=== PATIENT | male | born 1995 | race Two or more races ===

== ENCOUNTER 2021-02-14 15:19 | Emergency (ER) | payer OTHER ==
[~2021-02-14] VITALS: Ht 182.9 cm; Wt 88.9 kg
[2021-02-14 15:40] VITALS: BP 118/70
[2021-02-14] MEDS ORDERED: LIDOCAINE 1% HCL (LOCAL ANESTH.) INJ 20ML MDV IJ ONE (16:30)
== END 2021-02-14 17:25 | disposition home or self-care (01) ==
LOC: ER 15:19
DX: S61.217A Laceration without foreign body of left little finger without damage to nail, initial encounter (principal); W26.0XXA Contact with knife, initial encounter; Y93.89 Activity, other specified; Y92.89 Other specified places as the place of occurrence of the external cause; Y99.8 Other external cause status; Z88.2 Allergy status to sulfonamides
CPT/HCPCS: 12002; J2001